=== PATIENT | female | born 1975 | race Caucasian/White ===

== ENCOUNTER 2019-09-15 12:44 | Emergency (ER) | payer BC ==
[~2019-09-15] VITALS: Ht 170.2 cm; Wt 85.3 kg
--- NOTE | 2019-09-15 13:21 | NUR ---
CAME IN FOR LLE PAIN, REDNESS, MORE SWOLLEN THAN USUAL; SHE HAS CHRONIC LYMPHEDEMA; C/O NUASEA WITH VOMITING; + FEVERISH, TO ER BED 16, HOOKED TO MONITOR, CHANGED TO HOSP GOWN, WARM BLANKET PROVIDED. AWAITING MD VIERA
--- NOTE | 2019-09-15 13:31 | NUR ---
HERMELINDA CHRISTIE AT BEDSIDE
[2019-09-15] MEDS ORDERED: IBUPROFEN 600 MG TABLET PO ONE ×2 (14:00→14:03)
[2019-09-15 14:01] LABS: BASOPHILS % (AUTO) 0.2 % (0.0-2.0); HEMATOCRIT 39 % (33-45); HEMOGLOBIN 12.9 g/dL (11.5-14.8); LYMPHOCYTES # (AUTO) 0.3 /CMM (0.8-4.8); LYMPHOCYTES % (AUTO) 2.1 % (20.0-44.0); MEAN CORPUSCULAR HGB CONC 33 g/dl (31.0-36.0); MEAN CORPUSCULAR VOLUME 89 fL (82-100); MONOCYTES % (AUTO) 7.4 % (2.0-12.0); NEUTROPHILS # (AUTO) 12.7 /CMM (1.8-8.9); NEUTROPHILS % (AUTO) 90.3 % (43.0-81.0); PLATELET COUNT (AUTO) 232 /CMM (150-450); RED BLOOD CELL COUNT(AUTO) 4.39 MIL/uL (4.0-5.2); WHITE BLOOD COUNT (AUTO) 14.1 K/uL (4.3-11.0)
[2019-09-15 14:20] LABS: CALCIUM, SERUM 8.9 mg/dL (8.5-10.1); CREATININE 0.9 mg/dL (0.6-1.3); POTASSIUM 3.9 mmol/L (3.5-5.1)
[2019-09-15] MEDS ORDERED: CEFTRIAXONE 500 MG VIAL ONE (14:50)
[2019-09-15] MEDS ORDERED: LIDOCAINE /MPF 1% VIAL 5 ML VIAL ONE (14:51)
--- NOTE | 2019-09-15 14:57 | NUR ---
IV removed. Catheter intact and site benign. Pressure and 4x4 applied to site. No bleeding noted. Patient discharged to home in stable condition. Written and verbal after care instructions given. Patient verbalizes understanding of instruction.
[2019-09-15 14:58] VITALS: BP 113/54
[2019-09-15] MEDS ORDERED: CEFTRIAXONE 500 MG VIAL IM ONE (15:00)
== END 2019-09-15 14:58 | disposition home or self-care (01) ==
LOC: ER 12:50
DX: L03.116 Cellulitis of left lower limb (principal)
CPT/HCPCS: 36415; 80048; 85025; 87804 ×2; 93971; 96372; 99284; J0696; J3490